=== PATIENT | male | born 1980 | race Caucasian/White ===

== ENCOUNTER 2018-10-19 05:11 | Emergency (ER) | payer OTHER ==
[~2018-10-19] VITALS: Ht 185.4 cm; Wt 90.7 kg
[2018-10-19] MEDS ORDERED: VALIUM5 MG PO (05:24)
[2018-10-19] MEDS ORDERED: RITALIN10 MG PO (05:25)
[2018-10-19] MEDS ORDERED: PROZAC20 MG PO (05:25)
[2018-10-19] MEDS ORDERED: FLEXERIL PO (05:55)
[2018-10-19] MEDS ORDERED: IBUPROFEN 800800 MG PO (05:55)
[2018-10-19] MEDS ORDERED: HYDROCODON-ACE1 EAC7 PO (05:55)
[2018-10-19 06:19] VITALS: BP 137/86
[2018-10-22] MEDS ORDERED: HYDROCODONE-AP1 EAC6 PO (14:32)
[2018-10-22] MEDS ORDERED: IBUPROFEN 600600 M1 PO (14:32)
== END 2018-10-19 06:19 | disposition home or self-care (01) ==
LOC: M.ERS 05:11
DX: S06.0X0A Concussion without loss of consciousness, initial encounter (principal); M54.6 Pain in thoracic spine; F41.0 Panic disorder [episodic paroxysmal anxiety]; W01.0XXA Fall on same level from slipping, tripping and stumbling without subsequent striking against object, initial encounter; Y93.89 Activity, other specified; Y92.89 Other specified places as the place of occurrence of the external cause; Y99.8 Other external cause status

== ENCOUNTER 2019-11-22 13:42 | Emergency (ER) | payer OTHER ==
[~2019-11-22] VITALS: Ht 185.4 cm; Wt 90.7 kg
[~2019-11-22 13:42] MED LIST: FLEXERIL PO; HYDROCODON-ACE1 EAC7 PO; HYDROCODONE-AP1 EAC6 PO; IBUPROFEN 600600 M1 PO; IBUPROFEN 800800 MG PO; NORCO 5-325 TA1 EACH PO; PROZAC20 MG PO; RITALIN10 MG PO; VALIUM5 MG PO
[2019-11-22] MEDS ORDERED: HYDROXYZINE HCL25 M2 PO (13:53)
[2019-11-22] MEDS ORDERED: LISINOPRIL2.5 MG PO (13:54)
[2019-11-22] MEDS ORDERED: SERTRALINE HCL100 MG PO (13:55)
[2019-11-22] MEDS ORDERED: ASA81BEC PO (13:55)
[2019-11-22 14:18] LABS: ABSOLUTE BASOPHILS 0.1 thou/uL (0.0-0.2); ABSOLUTE EOSINOPHILS 0.1 thou/uL (0.0-0.7); ABSOLUTE LYMPHOCYTES 1.7 thou/uL (0.8-5.3); ABSOLUTE MONOCYTES 0.6 thou/uL (0.0-1.2); ABSOLUTE NEUTROPHILS 4.3 thou/uL (1.6-8.1); BASOPHILS 0.8 %; EOSINOPHILS 1.8 %; HEMATOCRIT 45.4 % (42.0-52.0); HEMOGLOBIN 15.9 gm/dL (14.0-18.0); LYMPHOCYTES 25.6 %; MCH 30.4 pg (26.0-34.0); MCHC 35.1 g/dL (28.0-37.0); MCV 86.8 fL (80.0-100.0); MONOCYTES 8.4 %; MPV 8.3 fl. (7.2-11.1); NUCLEATED RBCS 0 /100WBC; PLATELET COUNT* 331 thou/uL (150-400); POLYS 63.4 %; RBC 5.22 mil/uL (4.50-6.00); RDW-CV 13.1 % (10.5-14.5); WBC 6.7 thou/uL (4.0-11.0)
[2019-11-22 14:23] LABS: CALCIUM 8.6 mg/dL (8.5-10.1); CREATININE 1.1 mg/dL (0.6-1.3); POTASSIUM 4.4 mmol/L (3.5-5.1)
[2019-11-22 14:26] LABS: URINE BILIRUBIN NEGATIVE (Negative); URINE BLOOD NEGATIVE (Negative); URINE CLARITY CLEAR; URINE COLOR YELLOW; URINE GLUCOSE-RANDOM NEGATIVE (Negative); URINE KETONES NEGATIVE (Negative); URINE LEUKOCYTES-REFLEX NEGATIVE (Negative); URINE NITRITE-REFLEX NEGATIVE (Negative); URINE PROTEIN NEGATIVE (Negative); URINE SPECIFIC GRAVITY 1.025 (1.005-1.030); URINE UROBILINOGEN 0.2 E.U./dl (0.2-1.0)
[2019-11-22 14:37] LABS: ALBUMIN 4.3 g/dL (3.4-5.0); APTT 30.6 Seconds (25.0-31.3); CK-MB MASS 1.4 ng/mL (<0.5-3.6); INR 1.1; MAGNESIUM 1.8 mg/dL (1.8-2.4); PROTIME 11.2 Seconds (9.20-11.50); TOTAL BILIRUBIN 0.8 mg/dL (<0.1-1.0); TOTAL PROTEIN 8.2 g/dL (6.4-8.2)
[2019-11-22 15:14] VITALS: BP 119/76
--- NOTE | 2019-11-24 16:39 | EKG ---
[place] [address] ELECTROCARDIOGRAM REPORT Name: BRITTANEY DUNLAP Room: [facility]#: [id number] Admission: 11/22/19 Attend Phys: Discharge: 11/22/19 Date of : 84 Report #: [id number] THIS REPORT FOR: //name// [facility] ED Test Date: 2019-11-22 Test Time: 13:46:55 Pat Name: BRITTANEY DUNLAP Department: Room: Gender: M Architectural Intern: REGINA : 1980 Requested By: Chris Garduno Order Number: [id number] MD: Jake Aguilar Measurements Intervals [place] Rate: 67 P: 83 OK: 149 QRS: 90 QRSD: 93 T: 37 QT: 381 QTc: 403 Interpretive Statements Sinus rhythm Borderline right axis deviation Baseline wander in lead(s) III No previous ECG available for comparison Electronically Signed On 11-24-2019 16:38:25 [employer] by Jake Aguilar [email or web address] <ELECTRONICALLY SIGNED> By: Jake Aguilar MD, [facility] 11/24/19 1638 [id number] Jake Aguilar MD, FACC /EPI
== END 2019-11-22 15:15 | disposition home or self-care (01) ==
LOC: M.ERS 13:42
PROVIDERS: Family Medicine
DX: F41.0 Panic disorder [episodic paroxysmal anxiety] (principal); I10 Essential (primary) hypertension; F17.210 Nicotine dependence, cigarettes, uncomplicated; Z88.6 Allergy status to analgesic agent